=== PATIENT | female | born 1960 | race Caucasian/White ===

== ENCOUNTER → 2017-03-21 | Outpatient (CLI) | payer BC ==
[~2017-03-21] MED LIST: METF1TAB53 PO; ONDA4TAB7 SL
== END | disposition home or self-care (01) ==
LOC: C.LABSPEC 17:29
PROVIDERS: ATTEND Physician Assistant
DX: L29.8 Other pruritus (principal)

== ENCOUNTER 2024-03-15 13:33 | Observation (INO) ==
--- NOTE | 2024-03-15 13:58 | Emergency Department Note ---
Impression & Plan Acute cholecystitis, Epigastric abdominal pain, Nausea ED Provider Note NAME: GALI RIVERA AGE: 63 SEX: F : 1960 ARRIVES VIA: Walk-In INFORMANT: [Patient] ED PROVIDER(S): [Quinton Cole MD] CHIEF COMPLAINT: Abdominal pain HISTORY OF PRESENT ILLNESS: The patient is a 63-year-old female who states that she currently has epigastric pain into her back. The patient believes she has had pain now for around 4 hours. She had some breakfast cereal a few hours before the pain began. She does complain of some nausea, no vomiting. The patient states that she had pain in the right upper quadrant into the back twice this past week, it did resolve spontaneously. Both times, the right upper quadrant pain came on after eating some heavy/fatty food. The patient has not had shortness of breath or fever. She feels somewhat bloated. No urinary complaints, no diarrhea. PMHx/PSHx/Social Hx: See Below PHYSICAL EXAM: GENERAL: Patient is in mild distress from pain. HEENT: No acute trauma, normocephalic atraumatic, mucous membranes moist, no nasal congestion. NECK: No stridor, no adenopathy, no meningismus, trachea is midline. LUNGS: Clear to auscultation bilaterally, no wheeze, no rhonchi, breath sounds equal. HEART: Subtle systolic murmur, regular rate and rhythm. ABDOMEN: Soft, tender in the right upper quadrant, no distention. EXTREMITIES: No cyanosis, full range of motion of all the joints without pain or difficulty. NEUROLOGIC: Oriented x 3, no acute motor or sensory deficits, no focal weakness. SKIN: No jaundice, no diaphoresis. DIFFERENTIAL DIAGNOSIS: Pancreatitis, biliary colic, acute cholecystitis, UTI, renal colic, AAA, among others. EMERGENCY DEPARTMENT PROCEDURES: MEDICAL DECISION MAKING: There is no leukocytosis or concerning anemia. There is a normal platelet count. No renal failure or significant electrolyte abnormality. No concerning liver enzyme elevation. No evidence for pancreatitis. ECG shows a sinus rhythm, no ischemia. Cardiac enzyme testing x 1 is not consistent with acute cardiac injury. Urinalysis does not show evidence for infection, some contamination was seen. Chest x-ray does not show pneumonia or free air. Gallbladder ultrasound does show evidence for early acute cholecystitis, no ductal dilatation. On exam, patient was not febrile or toxic but she was tender in the right upper quadrant. Patient received IV saline 1 L, she was given IV Zosyn as antibiotic coverage. She was given IV Zofran, IV Toradol and IV Tylenol. She received IV morphine for additional pain control. The patient does feel improved since the medications have been administered. I did speak with on-call surgery. The patient will be hospitalized for surgical intervention. I spoke with the patient about her findings, I spoke with case management. I do believe the findings of acute cholecystitis explain her presentation. Prior/Outside records/notes reviewed: None ECG per my interpretation: Indication was abdominal pain. The ECG shows a normal sinus rhythm with a rate of 77. There is some poor R wave progression. There is no acute ST elevation. No PVCs. The QTc is 432. Continuous Cardiac Monitoring per my interpretation: An order was placed for continuous cardiac monitoring. The monitor shows a rate of 90 with normal sinus rhythm. Imaging/x-ray results per my interpretation: Chest x-ray does not show free air, pneumonia or pneumothorax. Chronic Medical/Social conditions affecting care: None Care/Management discussed with: Surgery-Dr. Morales. Level of care consideration(s): After review of the information above and other included data: --I believe the patient requires escalation of care to admission DISPOSITION: Admission Past Med/Surg History Problem List Nausea (Acute) Epigastric abdominal pain (Acute) Acute cholecystitis (Acute) Sarcoidosis Immune disorder High cholesterol Diabetes Arthritis Left ureteral calculus (Acute) Medical History Hypothyroid Kidney stones Surgical History (Updated 01/21/19 @ 08:25 by Sherley Méndez) H/O bilateral breast reduction surgery History of tubal ligation (~1991) Family History (Updated 01/21/19 @ 08:41 by Sherley Méndez) Other Diabetes Lupus Social History Smoking Status: Never smoker Hx Alcohol Use: Yes Preferred Language: Kazakh current occupation: medical billing and coding specialist Feels Safe at Home: Yes Allergies Allergies Allergy/AdvReac Type Severity Reaction Status Date / Time No Known Allergies Allergy Verified 03/15/24 15:31 Home Meds Home Medications Medication Instructions Recorded Confirmed atorvastatin 40 mg tablet 40 mg PO DAILY 01/21/19 01/21/19 lisinopril 2.5 mg tablet 2.5 mg PO DAILY 01/21/19 03/15/24 empagliflozin 10 mg tablet 10 mg PO DAILY 03/15/24 03/15/24 (Jardiance) levothyroxine 75 mcg tablet 75 mcg PO QAM 03/15/24 03/15/24 semaglutide 1 mg/dose (4 mg/3 mL) 1 mg subcut WK 03/15/24 03/15/24 subcutaneous pen injector (Ozempic) Results & Data (ED) Vital Signs Vital Signs - 24 hr 03/15/24 13:43 03/15/24 13:53 03/15/24 14:15 Temperature 36.6 C Temperature Source Temporal Artery Scan Pulse Rate 101 H 90 Pulse Rhythm Regular Respiratory Rate 20 Pulse Oximetry 95 Oxygen Delivery Method Room Air Sepsis Recent Fever Within 48 Hours No Sepsis New/Unexplained Change in Mental Status No Sepsis Action Taken by Nursing No Action Required Home Medications Current Medication List: was personally reviewed by me Laboratory Data Attestation: I reviewed the patient's lab results. 03/15/24 14:00 03/15/24 13:53 Lab Results 03/15/24 03/15/24 Range/Units 13:53 14:00 WBC 10.27 (4.8-10.8) K/ul RBC 5.22 (4.20-5.40) M/uL Hgb 15.0 (12.0-16.0) g/dl Hct 45.4 (37.0-47.0) % MCV 87.0 (80.0-100.0) fL MCH 28.7 (25.0-34.0) pg MCHC 33.0 (32.0-36.0) g/dL RDW Std Deviation 40.4 (36.4-46.3) fL RDW Coeff of [place] 12.8 (11.5-14.5) % Plt Count 305 (130-400) K/uL MPV 9.7 (9.4-12.4) fL Immature Gran % (Auto) 0.4 % Neut % (Auto) 64.5 % Lymph % (Auto) 22.4 % Atkinson % (Auto) 10.4 % Eos % (Auto) 2.0 % Baso % (Auto) 0.3 % Neut # (Auto) 6.62 H (1.40-6.50) K/uL Lymph # (Auto) 2.30 (1.20-3.40) K/uL Atkinson # (Auto) 1.07 H (0.11-0.59) K/uL Eos # (Auto) 0.21 (0.00-0.50) K/uL Baso # (Auto) 0.03 (0.00-0.20) K/uL Immature Gran # (Auto) 0.04 (0.01-0.20) K/uL Sodium 139 (136-145) mmol/L Potassium 3.9 (3.5-5.1) mmol/L Chloride 102 (98-107) mmol/L Carbon Dioxide 29 (21-32) mmol/L Anion Gap 8 (3-11) BUN 19 (6-23) mg/dl Creatinine 0.73 (0.6-1.2) mg/dl Est Cr Clr Drug Dosing 63.9 ml/min eGFR 92.93 BUN/Creatinine Ratio 26.0 H (10-20) Glucose 98 (70-99(Fasting)) mg/dl Calcium 9.9 (8.6-10.3) mg/dl Total Bilirubin 0.8 (0.2-1.0) mg/dl AST 14 (13-39) U/L ALT 18 (7-52) U/L Alkaline Phosphatase 127 H (34-104) U/L Troponin I High Sens 2.8 (0-14) pg/ml Total Protein 7.7 (6.0-8.3) gm/dl Albumin 4.9 (3.4-5.0) gm/dl Globulin 2.8 (2.5-4.0) gm/dl Albumin/Globulin Ratio 1.8 (0.9-2) Lipase 42 (11-82) U/L Urine Color Yellow Urine Appearance Clear (Clear) Urine pH 5.5 (4.5-7.5) Ur Specific [place] 1.041 H (1.000-1.030) Urine Protein Negative (Negative) Urine Glucose (UA) 3+ H (Negative) Urine Ketones Negative (Negative) Urine Blood 1+ H (Negative) Urine Nitrite Negative (Negative) Urine Bilirubin Negative (Negative) Urine Urobilinogen Negative (Negative) Ur Leukocyte Esterase Negative (Negative) Urine WBC (Auto) 6-10 H (0-5) /hpf Urine RBC (Auto) 0-2 (0-2) /hpf U Hyaline Cast (Auto) 0-2 (0-2) /lpf U Epithel Cells (Auto) 6-10 H (0-2) /hpf Urine Bacteria (Auto) None Seen (None Seen) Administered Medications Discontinued Medications Sodium Chloride (Nss) 1,000 mls @ 999 mls/hr IV .Q1H1M STA Stop: 03/15/24 14:52 Last Infusion: 03/15/24 14:53 Dose: Infused Documented By: Admin: 03/15/24 14:02 Dose: 999 mls/hr Documented By: JACQUELYNK Acetaminophen (Ofirmev) 1,000 mg in 100 mls @ 400 mls/hr IV NOW STA Stop: 03/15/24 14:06 Last Infusion: 03/15/24 14:24 Dose: Infused Documented By: Admin: 03/15/24 14:01 Dose: 400 mls/hr Documented By: JACQUELYNK Ketorolac Tromethamine (Ketorolac Tromethamine 15 Mg/Ml Vial) 10 mg IV NOW STA Stop: 03/15/24 13:53 Last Admin: 03/15/24 14:01 Dose: 10 mg Documented By: JACQUELYNK Ondansetron HCl (Ondansetron Inj 2 Mg/Ml 2 Ml Vial) 4 mg IV NOW STA Stop: 03/15/24 13:53 Last Admin: 03/15/24 14:01 Dose: 4 mg Documented By: JACQUELYNK Imaging Data Radiologist's Impression: Chest X-Ray 03/15/24 13:53 EXAM: Radiograph of the Chest 1 View INDICATION: Abdominal pain. TECHNIQUE: Frontal view of the chest. COMPARISON: No relevant prior studies available. FINDINGS: Lungs and pleural spaces: No consolidation or pulmonary edema. No pleural effusion or pneumothorax. Heart: Shape and configuration within normal limits allowing for technique. Mediastinum: Normal contour. Bones/joints: No fracture, erosion or dislocation. Soft tissues: No abnormality noted. No radiopaque foreign body noted. Upper abdomen: No free air subjacent to the diaphragms. IMPRESSION: No acute cardiopulmonary disease. ACT 112: Negative or not required by law. Electronically signed by Polina Dillard 03-15-2024 2:49 PM Gallbladder Ultrasound 03/15/24 13:53 EXAM: US Abdomen Limited Right Upper Quadrant INDICATION: TECHNIQUE: Real-time ultrasound of the right upper quadrant with image documentation. COMPARISON: No relevant prior studies available. FINDINGS: Liver: Smooth cortical contour. No mass. No intrahepatic bile duct dilation. Gallbladder: Multiple stones in the gallbladder. The wall is thickened 4 mm and mildly edematous. No pericholecystic fluid. The technologist indicates a positive sonographic Zhou sign. Common bile duct: No significant abnormality noted. No stones. No dilation. Pancreas: Homogeneously echogenic. No fluid. No mass or ductal dilatation. Right kidney: 10.8 cm long. Normal cortical thickness and echotexture. Mild hydronephrosis noted. No mass or stone noted. IMPRESSION: 1. Cholelithiasis with acute cholecystitis. 2. Mild right hydronephrosis. 3. Nonspecific pancreatic echogenicity. Consider pancreatitis and fatty atrophy. ACT 112: Negative or not required by law. Electronically signed by Polina Dillard 03-15-2024 3:15 PM Discharge Plan Visit Data Chief Complaint: Abdominal Pain Stated Complaint: CENTRAL ABD PAIN/TRAVELS TO BACK, NAUSEA ED Provider: Quinton Cole Discharge Problem: Acute cholecystitis, Epigastric abdominal pain, Nausea Patient Disposition: Admitted As Inpatient Condition: Fair Forms Stand Alone Forms: [employer] Prescriptions Prescriptions: No Action atorvastatin 40 mg tablet 40 mg PO DAILY lisinopril 2.5 mg tablet 2.5 mg PO DAILY levothyroxine 75 mcg tablet 75 mcg PO QAM Jardiance 10 mg tablet 10 mg PO DAILY Rx Instructions: stop the 25th Ozempic 1 mg/dose (4 mg/3 mL) pen injector 1 mg SUBCUT WK Referrals Referrals: Sterling Wasserman [Primary Care Provider] -
[2024-03-15] MEDS: ONDANSETRON INJ 2 MG/ML 2 ML VIAL IV STA (14:01)
[2024-03-15] MEDS: KETOROLAC TROMETHAMINE 15 MG/ML VIAL IV STA (14:01)
[2024-03-15] MEDS: ACETAMINOPHEN 1,000 MG/100 ML VIAL IV STA (14:01)
[2024-03-15] MEDS: SODIUM CHLORIDE 0.9% 1,000 ML IV STA (14:02)
[2024-03-15 14:15] LABS: Basophils # (auto) 0.03 K/uL (0.00-0.20); Basophils % (auto) 0.3 %; Eosinophils # (auto) 0.21 K/uL (0.00-0.50); Hematocrit (blood only) 45.4 % (37.0-47.0); Immature Granulocytes # (auto) 0.04 K/uL (0.01-0.20); Immature Granulocytes % (auto) 0.4 %; Lymphocytes % (auto) 22.4 %; Mean Corpuscular Hemoglobin 28.7 pg (25.0-34.0); Mean Platelet Volume 9.7 fL (9.4-12.4); Monocytes # (auto) 1.07 K/uL (0.11-0.59); Monocytes % (auto) 10.4 %; Neutrophils # (auto) 6.62 K/uL (1.40-6.50); Neutrophils % (auto) 64.5 %; Platelet Count 305 K/uL (130-400); RDW Coefficient of Variation 12.8 % (11.5-14.5); RDW Standard Deviation 40.4 fL (36.4-46.3); Red Blood Count 5.22 M/uL (4.20-5.40); White Blood Count 10.27 K/ul (4.8-10.8)
[2024-03-15 14:32] LABS: Albumin Globulin Ratio 1.8 (0.9-2); Albumin Level 4.9 gm/dl (3.4-5.0); Bilirubin,Total 0.8 mg/dl (0.2-1.0); Calcium 9.9 mg/dl (8.6-10.3); Creatinine Clr Calc Pharmacy 63.9 ml/min; Globulin 2.8 gm/dl (2.5-4.0); Potassium 3.9 mmol/L (3.5-5.1); Total Protein 7.7 gm/dl (6.0-8.3)
[2024-03-15 14:32] LABS: Appearance Urine Clear (Clear); Bacteria Urine Automated None Seen (None Seen); Bilirubin Urine Negative (Negative); Blood Urine 1+ (Negative); Cast Urine Automated 0-2 /lpf (0-2); Color Urine Yellow; Glucose Urine UA 3+ (Negative); Ketones Urine Negative (Negative); Leukocyte Esterase Urine Negative (Negative); Nitrite Urine Negative (Negative); Protein Urine Negative (Negative); RBC Urine Automated 0-2 /hpf (0-2); Specific Gravity Urine 1.041 (1.000-1.030); Urobilinogen Urine Negative (Negative); pH Urine 5.5 (4.5-7.5)
[2024-03-15 14:39] LABS: Troponin I High Sensitivity 2.8 pg/ml (0-14)
--- NOTE | 2024-03-15 14:49 | XRay Report ---
EXAM: Radiograph of the Chest 1 View INDICATION: Abdominal pain. TECHNIQUE: Frontal view of the chest. COMPARISON: No relevant prior studies available. FINDINGS: Lungs and pleural spaces: No consolidation or pulmonary edema. No pleural effusion or pneumothorax. Heart: Shape and configuration within normal limits allowing for technique. Mediastinum: Normal contour. Bones/joints: No fracture, erosion or dislocation. Soft tissues: No abnormality noted. No radiopaque foreign body noted. Upper abdomen: No free air subjacent to the diaphragms. IMPRESSION: No acute cardiopulmonary disease. ACT 112: Negative or not required by law. Electronically signed by Polina Dillard 03-15-2024 2:49 PM
--- NOTE | 2024-03-15 15:15 | Ultrasound Report ---
EXAM: US Abdomen Limited Right Upper Quadrant INDICATION: TECHNIQUE: Real-time ultrasound of the right upper quadrant with image documentation. COMPARISON: No relevant prior studies available. FINDINGS: Liver: Smooth cortical contour. No mass. No intrahepatic bile duct dilation. Gallbladder: Multiple stones in the gallbladder. The wall is thickened 4 mm and mildly edematous. No pericholecystic fluid. The technologist indicates a positive sonographic Zhou sign. Common bile duct: No significant abnormality noted. No stones. No dilation. Pancreas: Homogeneously echogenic. No fluid. No mass or ductal dilatation. Right kidney: 10.8 cm long. Normal cortical thickness and echotexture. Mild hydronephrosis noted. No mass or stone noted. IMPRESSION: 1. Cholelithiasis with acute cholecystitis. 2. Mild right hydronephrosis. 3. Nonspecific pancreatic echogenicity. Consider pancreatitis and fatty atrophy. ACT 112: Negative or not required by law. Electronically signed by Polina Dillard 03-15-2024 3:15 PM
[2024-03-15] MEDS ORDERED: MoRPHine SULFATE 2 MG/ML CARP IV PRN (15:45)
[2024-03-15] MEDS: PIPERACILLIN/TAZOBACTAM 4.5 GM/100 ML BAG IV ONE (15:56)
[2024-03-15] MEDS: MoRPHine SULFATE 2 MG/ML CARP IV STA (15:57)
--- NOTE | 2024-03-15 17:23 | History & Physical Report ---
Date of Service March 15, 2024 Assessment & Plan (1) Acute cholecystitis: Plan: Discussed her diagnosis. We discussed options and risks which include bleeding, infection, bile duct injury or bile duct leak, injury to other organs, DVT, PE, [place], CVA etc. Following our discussion I answered all of her questions. We will proceed today with laparoscopic cholecystectomy. She agrees with the plan. (2) Diabetes: (3) Sarcoidosis: History of Present Illness Primary Care Provider: Sterling Lara is a pleasant 63-year-old female whose had about a 1 week history of severe upper abdominal pain with nausea. It temporarily went away for a day or 2 and then came back today after eating. Workup in the emergency room reveals acute cholecystitis. Allergies Allergy/AdvReac Type Severity Reaction Status Date / Time No Known Allergies Allergy Verified 03/15/24 15:31 Home Medications Medication Instructions Recorded Confirmed Type atorvastatin 40 mg tablet 40 mg PO 3XWK 01/21/19 03/15/24 History lisinopril 2.5 mg tablet 2.5 mg PO QAM 01/21/19 03/15/24 History empagliflozin 10 mg tablet 10 mg PO QAM 03/15/24 03/15/24 History (Jardiance) levothyroxine 75 mcg tablet 75 mcg PO DAILYBB 03/15/24 03/15/24 History semaglutide 1 mg/dose (4 mg/3 mL) 1 mg subcut WK 03/15/24 03/15/24 History subcutaneous pen injector (Ozempic) Past Med/Surg History Problem List (Updated 03/15/24 @ 17:23 by Reece Morales DO) Nausea (Acute) Epigastric abdominal pain (Acute) Acute cholecystitis (Acute ~03/15/24) Sarcoidosis Immune disorder High cholesterol Diabetes Arthritis Left ureteral calculus (Acute) Medical History Hypothyroid Kidney stones Surgical History (Updated 01/21/19 @ 08:25 by Sherley Méndez) H/O bilateral breast reduction surgery History of tubal ligation (~1991) Family History (Updated 01/21/19 @ 08:41 by Sherley Méndez) Other Diabetes Lupus Social History Smoking Status: Never smoker Hx Alcohol Use: Yes Preferred Language: Khmer current occupation: medical laboratory manager Feels Safe at Home: Yes Review of Systems All systems reviewed & are unremarkable except as noted in HPI & below Physical Exam Constitutional: WD/WN, vitals as above no acute distress and not ill appearing Eyes: PERRL, conjunctivae normal, anicteric sclerae EOM intact bilaterally ENMT: external ear and nose normal, oropharynx normal Ears: no hearing impairment Neck: trachea midline, no thyromegaly Respiratory: normal respiratory effort; no respiratory distress and does not use accessory muscles Cardiovascular: Rate/Rhythm: regular rate and regular rhythm Gastrointestinal (Abdomen): Soft. Positive right upper quadrant tenderness. No other palpable abnormalities Skin: no rashes, warm and dry Psychiatric: Orientation: alert, oriented x 3 and cooperative Results & Data Vital Signs (Past 12 Hours) Vital Signs Temp Pulse Pulse Resp BP Pulse Ox O2 Del Method 03/15/24 15:34 80 17 134/77 97 Room Air 03/15/24 14:15 90 03/15/24 13:53 101 H 20 95 Room Air 03/15/24 13:43 36.6 C
--- NOTE | 2024-03-15 17:47 | Anesthesiology Consultation ---
Date of Service March 15, 2024 Assessment & Plan Chart Review Chart Review: Acceptable Risk for Surgery Consults Requested none History Surgery Operation Date: 03/15/24 17:30 Proposed Procedures p Laparoscopic Cholecystectomy - Reece Morales DO Height/Weight Height: 4 ft 11 in Weight: 61.8 kg Allergies Allergy/AdvReac Type Severity Reaction Status Date / Time No Known Allergies Allergy Verified 03/15/24 15:31 Medications Home Medications Medication Instructions Recorded Confirmed Last Taken atorvastatin 40 mg tablet 40 mg PO 3XWK 01/21/19 03/15/24 03/14/24 lisinopril 2.5 mg tablet 2.5 mg PO QAM 01/21/19 03/15/24 03/14/24 empagliflozin 10 mg tablet 10 mg PO QAM 03/15/24 03/15/24 03/14/24 (Jardiance) levothyroxine 75 mcg tablet 75 mcg PO DAILYBB 03/15/24 03/15/24 03/14/24 semaglutide 1 mg/dose (4 mg/3 mL) 1 mg subcut WK 03/15/24 03/15/24 03/07/24 subcutaneous pen injector (Ozempic) OVERDUE NPO Date Last Intake of Fluids: 03/15/24 Time Last Intake of Fluids: 13:00 Date Last Intake of Solids: 03/15/24 Time Last Intake of Solids: 11:00 Past Medical History Medical History Hypothyroid Kidney stones Past Family History Family History (Updated 01/21/19 @ 08:41 by Sherley Méndez) Other Diabetes Lupus Past Surgical History Surgical History (Updated 01/21/19 @ 08:25 by Sherley Méndez) H/O bilateral breast reduction surgery History of tubal ligation (~1991) Social History Smoking Status: Never smoker Hx Alcohol Use: Yes Physical Exam Vital Signs Last Vital Signs Temp 36.6 C 03/15/24 13:43 Pulse 75 03/15/24 17:00 Resp 17 03/15/24 17:00 BP 106/67 03/15/24 17:00 Pulse Ox 94 03/15/24 17:00 O2 Del Method Room Air 03/15/24 17:00 Testing Laboratory Results 03/15/24 14:00 03/15/24 13:53 Urine Color Yellow 03/15/24 14:00 Urine Appearance Clear (Clear) 03/15/24 14:00 Urine pH 5.5 (4.5-7.5) 03/15/24 14:00 Ur Specific [place] 1.041 (1.000-1.030) H 03/15/24 14:00 Urine Protein Negative (Negative) 03/15/24 14:00 Urine Glucose (UA) 3+ (Negative) H 03/15/24 14:00 Urine Ketones Negative (Negative) 03/15/24 14:00 Urine Nitrite Negative (Negative) 03/15/24 14:00 Ur Leukocyte Esterase Negative (Negative) 03/15/24 14:00 Urine WBC (Auto) 6-10 /hpf (0-5) H 03/15/24 14:00 Urine RBC (Auto) 0-2 /hpf (0-2) 03/15/24 14:00 U Hyaline Cast (Auto) 0-2 /lpf (0-2) 03/15/24 14:00 U Epithel Cells (Auto) 6-10 /hpf (0-2) H 03/15/24 14:00 Urine Bacteria (Auto) None Seen (None Seen) 03/15/24 14:00
[2024-03-15] MEDS ORDERED: ATROPINE SULFATE 0.1 MG/ML 10ML SYR IV PRN (17:49)
[2024-03-15] MEDS ORDERED: HYDROmorphone INJ 2 MG/ML SYR/VIAL IV PRN (17:49)
[2024-03-15] MEDS ORDERED: ePHEDrine sulfate 50 MG/ML AMP IV PRN (17:49)
[2024-03-15] MEDS ORDERED: fentaNYL citrate PF 100 MCG/2 ML VIAL IV PRN (17:49)
[2024-03-15] MEDS ORDERED: MIDAZOLAM HCL 1 MG/ML 2ML VIAL ONE (17:59)
[2024-03-15] MEDS ORDERED: fentaNYL citrate PF 100 MCG/2 ML VIAL ONE (17:59)
[2024-03-15] MEDS ORDERED: ROCURONIUM BROMIDE 10 MG/ML 5 ML VIAL IV ONE (18:02)
[2024-03-15] MEDS: BUPIVACAINE/EPINEPHRINE 0.5% MPF 1:200,000 30 ML VIAL ONE (18:38)
[2024-03-15] MEDS ORDERED: ONDANSETRON INJ 2 MG/ML 2 ML VIAL ONE (18:39)
[2024-03-15] MEDS ORDERED: PROPOFOL IV EMULSION 10 MG/ML 20 ML VIAL IV ONE ×2 (18:39→18:43)
[2024-03-15] MEDS ORDERED: DEXAMETHASONE SOD INJ 4 MG/ML VIAL ONE (18:39)
[2024-03-15] MEDS ORDERED: SUGAMMADEX SODIUM 200 MG/2 ML VIAL IV ONE (18:40)
--- NOTE | 2024-03-15 19:11 | Operative Report ---
PG Post Operative Report Pre & Post Diagnosis Operation Date: 03/15/24 17:30 Pre-Op Diagnosis: Acute cholecystitis Post-Op Diagnosis: Acute cholecystitis I identified the patient and participated in the time-out.: Yes Procedure Operation Date: 03/15/24 17:30 Actual Procedures p Laparoscopic Cholecystectomy - Reece Morales DO Surgeon Reece Morales DO [employer] Super[employer] OR staff Estimated Blood Loss 25 Findings Consistent with Post-Op Diagnosis Specimens gallbladder Description of Procedure After informed consent was obtained the patient was taken to the operating room and placed in the supine position. After successful intubation the abdomen was sterilely prepped and draped in usual fashion. A periumbilical incision was made with an 11 blade scalpel and carried down through the soft tissue using electrocautery. The anterior rectus fascia was opened using electrocautery and 2 #0 Vicryl stay sutures were placed. The peritoneum was elevated with hemostats and incised under direct vision using Metzenbaum scissors. A finger sweep was performed and a 12 mm Guy trocar was placed. The abdomen was insufflated to 18 mmHg. The laparoscope was inserted and the abdomen was examined in 360. There was a small hiatal hernia. The gallbladder was also acutely inflamed. Other than those 2 findings no other gross abnormalities were identified. A subxiphoid 5 mm port and 2 right upper quadrant 5 mm ports were placed under direct vision. The patient was placed in a reverse Trendelenburg position and slightly airplaned to the left. The gallbladder was grasped and elevated superiorly and laterally. A [place] dissector was used to take down adhesions around the neck of the gallbladder. The cystic duct was identified and skeletonized. It was clipped twice proximally and once distally and transected using a laparoscopic scissor. In similar fashion the cystic artery was identified and skeletonized clipped and divided. The gallbladder was removed from the gallbladder fossa with electrocautery. It was placed into an Endo Catch bag. Thorough irrigation was performed. At the end of the procedure there was adequate hemostasis and no evidence of any bile leaks. A final look around the abdomen showed no other abnormalities. The gallbladder and trochars were all removed and the abdomen was desufflated. The fascia of the camera port was closed using 0 Vicryl in a [id number] fashion. All the wounds were irrigated and closed using 4-0 Monocryl. Marcaine was injected around them for postoperative analgesia and skin glue used as a dressing. The patient was awaken extubated and transferred to recovery in stable condition. I attest to the content of the Intraoperative Record and any orders documented therein. Any exceptions are noted below.
--- NOTE | 2024-03-15 19:28 | Anesthesiology Progress Note ---
Date of Service March 15, 2024 Anesthesia Post Procedure Vital Signs Vital Signs: Temp Pulse Pulse Resp BP Pulse Ox O2 Del Method 03/15/24 17:00 75 17 106/67 94 Room Air 03/15/24 15:34 80 17 134/77 97 Room Air 03/15/24 14:15 90 03/15/24 13:53 101 H 20 95 Room Air 03/15/24 13:43 36.6 C Pain Intensity Right Upper Abdomen: Pain Intensity: 6 Transfer of Care Handoff Completed per policy Notes Mental Status: alert / awake / arousable Patient Amnestic to Procedure: Yes Nausea / Vomiting: adequately controlled Pain: adequately controlled Airway Patency, RR, SpO2: stable & adequate BP & HR: stable & adequate Hydration State: stable & adequate Anesthetic Complications: no major complications apparent and Pt Satisfied with anesthetic care
[2024-03-15] MEDS: ONDANSETRON INJ 2 MG/ML 2 ML VIAL IV PRN (19:30)
[2024-03-15] MEDS ORDERED: GLUCAGON FOR INJ 1 MG VIAL SQ PRN (19:37)
[2024-03-15] MEDS ORDERED: GLUCOSE 40% GEL 15 GM TUBE PO PRN (19:37)
[2024-03-15] MEDS ORDERED: GLUCOSE 10 TAB/TUBE PO PRN (19:37)
[2024-03-15] MEDS ORDERED: DEXTROSE 50% 50 ML SYRINGE IV PRN (19:37)
[2024-03-15] MEDS ORDERED: CARBOHYDRATES FOR HYPOGLYCEMIA PO PRN (19:37)
--- NOTE | 2024-03-15 19:39 | Hospitalist Consultation ---
Date of Consultation March 15, 2024 Assessment & Plan (1) Acute cholecystitis: Acute cholecystitis s/p lap cholecystectomy Liver ultrasound cholelithiasis with acute cholecystitis. No obstruction is seen. LFTs are normal Management per surgical team Patient has been on perioperative Zosyn. She is not septic at time of assessment. She does not have leukocytosis (2) Sarcoidosis: .No acute change in management (3) High cholesterol: May resume atorvastatin 03/16 (4) Diabetes: Patient is on Jardiance and Ozempic [employer] Takes Ozempic on Fridays; however she did not take this in the past week and reports she has not had it in around 8 days No A1c available BSG 89 preop, 117 postop Will add conservative SSI with correction factor only, no carb ratio. If outside of goal parameters of [id number], may place pharmacy glycemic consult. No need for insulin at time of assessment. Type II DM diet once able to be advanced per surgical team (5) Hypothyroid: Continue Synthroid Plan Pharmacal prophylaxis deferred immediately postop. Can add Lovenox for DVT prophylaxis 03/16 Full code MSO History of Present Illness History of Present Illness Marco is a 63-year-old female with past medical history of type II DM, sarcoidosis, hypothyroidism, and hyperlipidemia who presented to the ER with epigastric pain rating to the back which occurred twice earlier in the week, but which recurred day of admission and was persistent for 4 hours after eating breakfast. On ER evaluation she was found to have acute cholecystitis. Patient is seen in E101 on recovery following surgery. We have been consulted for medical management of diabetes. Patient is somewhat groggy and somnolent postanesthesia. She reports her pain is tolerable and 4/10. She denies fever chills or sweats. No chest pain or chest pressure. 4/10 pain slightly achy in her mid abdomen, no rebound/guarding and this is not significantly worse on palpation. She denies history of heart disease, strokes, and CKD. She denies chest pain preceding admission and reports she can go over normal activities without limiting chest pain/chest pressure She is nauseous and would like an antiemetic She denies medication allergies For diabetes she takes Jardiance and Ozempic. She normally takes her Ozempic on Fridays however she did not take it this past week. Her PCP is Sterling Wasserman with [facility], no records are available at time of admission She denies tobacco and alcohol use Full code Offered to call her family, patient notes that family is already been called by Dr. Morales and does not wish for any other updates to be given at time of assessment Allergies Allergy/AdvReac Type Severity Reaction Status Date / Time No Known Allergies Allergy Verified 03/15/24 15:31 Home Medications Medication Instructions Recorded Confirmed Type atorvastatin 40 mg tablet 40 mg PO 3XWK 01/21/19 03/15/24 History lisinopril 2.5 mg tablet 2.5 mg PO QAM 01/21/19 03/15/24 History empagliflozin 10 mg tablet 10 mg PO QAM 03/15/24 03/15/24 History (Jardiance) levothyroxine 75 mcg tablet 75 mcg PO DAILYBB 03/15/24 03/15/24 History semaglutide 1 mg/dose (4 mg/3 mL) 1 mg subcut WK 03/15/24 03/15/24 History subcutaneous pen injector (Ozempic) Patient History Medical History Hypothyroid Kidney stones Surgical History (Updated 01/21/19 @ 08:25 by Sherley Méndez) H/O bilateral breast reduction surgery History of tubal ligation (~1991) Family History (Updated 01/21/19 @ 08:41 by Sherley Méndez) Other Diabetes Lupus Social History Smoking Status: Never smoker Hx Alcohol Use: Yes Preferred Language: Austrian current occupation: clinical medical assistant Feels Safe at Home: Yes Physical Exam Physical Exam: General: A&Ox3. NAD. Cooperative. Somnolent and somewhat groggy following anesthesia but answers questions appropriate HEENT: Atraumatic, normocephalic. Vision and hearing grossly intact Pulm: CTAB A&P. -wheezes, -rales, -rhonchi. Symmetrical chest rise. No increased work of breathing. No respiratory distress. Cardiac: RRR, -mrg. Radial pulses intact and symmetrical. Abdominal: Lap incisions intact without dehiscence/bleeding/oozing. Abdomen is diffusely mildly tender to palpation but without rebound/guarding/rigidity Results & Data Results & Data Vital Signs (Past 12 Hours) Vital Signs Temp Pulse Pulse Resp BP Pulse Ox O2 Del Method 03/15/24 17:00 75 17 106/67 94 Room Air 03/15/24 15:34 80 17 134/77 97 Room Air 03/15/24 14:15 90 03/15/24 13:53 101 H 20 95 Room Air 03/15/24 13:43 36.6 C PG Care Time/CCT Total # of Minutes Spent Total Time Spent with Patient: Total time spent is greater than 50% in coordination of care (as documented) at patient's floor/unit and/or counseling patient: Coding Level of Care Code 26763 IN/OBS CONSULT LVL 4,60M Diagnoses Acute cholecystitis K81.0 Sarcoidosis D86.9 High cholesterol E78.00 Diabetes E11.9 Hypothyroid E03.9
[2024-03-15] MEDS: PROMETHAZINE HCL 6.25 MG in SODIUM CHLORIDE 0.9% 50 ML IV PRN (19:40)
[2024-03-15] MEDS: PROMETHAZINE HCL INJ 25 MG/ML 1 ML VIAL ONE (19:49)
[2024-03-15] MEDS: SODIUM CHLORIDE 0.9% 50 ML BAG ONE ×2 (19:49→20:33)
[2024-03-15] MEDS ORDERED: ONDANSETRON INJ 2 MG/ML 2 ML VIAL IV PRN (20:31)
[2024-03-15] MEDS ORDERED: MoRPHine SULFATE 4 MG/ML 1 ML CARP\\VIAL IV PRN (20:31)
[2024-03-15] MEDS: PROMETHAZINE 6.25 MG/50.25 ML BAG IV STA (20:33)
[2024-03-15] MEDS: SODIUM CHLORIDE 0.9% 1,000 ML IV SCH (20:40)
[2024-03-15] MEDS: INSULIN ASPART PER UNIT CHARGE SC SCH (20:42)
[2024-03-15] MEDS: PIPERACILLIN/TAZOBACTAM 4.5 GM/100 ML BAG IV SCH (21:53)
[2024-03-16] MEDS: ACETAMINOPHEN 1,000 MG/100 ML VIAL IV PRN (02:04)
--- NOTE | 2024-03-16 05:13 | Surgery Progress Note ---
Date of Service March 16, 2024 Assessment & Plan (1) Acute cholecystitis: Plan: Status post laparoscopic cholecystectomy on 03/15/2024 (postop day #1) Provide analgesics as needed Provide antiemetics as needed Patient is tolerating clear liquids so likely advance diet as tolerated this morning Continue antibiotics while in hospital Increase activity as able Check a.m. labs when available as above. doing well. pain controlled. ok for d/c. instructions given Admission and Anticipated Discharge Date Admission Date: March 15, 2024 Subjective Patient is resting comfortably in bed. She notes that since her surgery she has not had a bowel movement yet. She notes her pain is well-controlled. She denies any nausea or vomiting. She has tolerated clear liquid since surgery. Physical Exam Gastrointestinal (Abdomen): Abdomen is soft and nondistended. She has minimal pain and only some slight tenderness near her surgical incisions which is expected. Incisions are all clean, dry, and intact Results & Data Vital Signs (Past 12 Hours) Vital Signs Temp Pulse Resp BP Pulse Ox O2 Del Method O2 Flow Rate 03/16/24 04:13 36.7 C 87 16 110/80 97 Room Air 03/15/24 23:58 36.8 C 89 18 106/67 98 Room Air, Nasal Cannula 2 03/15/24 21:58 Nasal Cannula 2 03/15/24 21:58 36.6 C 80 18 133/80 98 Nasal Cannula 2 03/15/24 20:10 85 18 131/72 98 Nasal Cannula 2 03/15/24 19:55 36.3 C L 96 H 16 134/73 97 Nasal Cannula 2 03/15/24 19:45 110 H 18 152/89 H 95 Nasal Cannula 3 03/15/24 19:35 91 H 14 128/74 95 Oxymask 3 03/15/24 19:25 36 C L 100 H 16 141/78 H 94 Oxymask 6 PG Care Time/CCT Total # of Minutes Spent Total Time Spent with Patient: Total time spent is greater than 50% in coordination of care (as documented) at patient's floor/unit and/or counseling patient: Coding Level of Care Code 29156 Post Operative Follow-Up Diagnoses Acute cholecystitis K81.0
[2024-03-16] MEDS: LEVOTHYROXINE SODIUM 75 MCG TABLET PO SCH (05:44)
[2024-03-16 06:20] LABS: Basophils # (auto) 0.01 K/uL (0.00-0.20); Basophils % (auto) 0.1 %; Hematocrit (blood only) 39.1 % (37.0-47.0); Immature Granulocytes # (auto) 0.04 K/uL (0.01-0.20); Immature Granulocytes % (auto) 0.5 %; Lymphocytes # (auto) 0.63 K/uL (1.20-3.40); Lymphocytes % (auto) 7.4 %; Mean Corpuscular Hgb Conc 33.2 g/dL (32.0-36.0); Mean Corpuscular Volume 87.3 fL (80.0-100.0); Mean Platelet Volume 9.8 fL (9.4-12.4); Monocytes # (auto) 0.44 K/uL (0.11-0.59); Monocytes % (auto) 5.2 %; Neutrophils # (auto) 7.38 K/uL (1.40-6.50); Neutrophils % (auto) 86.8 %; Platelet Count 264 K/uL (130-400); RDW Coefficient of Variation 12.4 % (11.5-14.5); RDW Standard Deviation 39.8 fL (36.4-46.3); Red Blood Count 4.48 M/uL (4.20-5.40)
[2024-03-16 07:16] LABS: Albumin Globulin Ratio 1.4 (0.9-2); Albumin Level 3.7 gm/dl (3.4-5.0); BUN Creatinine Ratio 27.4 (10-20); Bilirubin,Total 0.7 mg/dl (0.2-1.0); Calcium 8.7 mg/dl (8.6-10.3); Creatinine Clr Calc Pharmacy 63.9 ml/min; Globulin 2.6 gm/dl (2.5-4.0); Potassium 4.5 mmol/L (3.5-5.1); Total Protein 6.3 gm/dl (6.0-8.3)
[2024-03-16 07:56] VITALS: BP 94/60; RESP 14; TEMP 97.7; O2SAT 94
[2024-03-16] MEDS: lisinopril 2.5 MG TAB PO SCH (09:01)
[2024-03-16 10:11] VITALS: PULSE 87
--- NOTE | 2024-03-16 13:08 | Electrocardiogram Report ---
Test Reason : Blood Pressure : */* mmHG Vent. Rate : 77 BPM Atrial Rate : 77 BPM P-R Int : 160 ms QRS Dur : 74 ms QT Int : 382 ms P-R-T Axes : 63 10 32 degrees QTcB Int : 432 ms Normal sinus rhythm Low voltage QRS Poor R wave progression, consider anterior MD vs. lead placement vs. LVH Abnormal ECG No previous ECGs available Confirmed by Javed Casas ([id number]) on 03/16/2024 1:07:51 PM Referred By: REFERRED SELF Confirmed By: Javed Casas
[2024-03-17] MEDS ORDERED: ATORVASTATIN 40 MG TAB PO SCH (09:00)
--- NOTE | 2024-03-25 09:20 | Discharge Summary ---
Date of Service March 16, 2024 Admission HPI Per Admitting Provider Marco is a pleasant 63-year-old female whose had about a 1 week history of severe upper abdominal pain with nausea. It temporarily went away for a day or 2 and then came back today after eating. Workup in the emergency room reveals acute cholecystitis. Principal Diagnosis acute cholecystitis Discharge Exam awake/alert, no distress Gastrointestinal (Abdomen) Inspection/Auscultation: + abdominal surgical incision (c/d/i ) Percussion/Palpation: + abdomen tender (expected post op discomfort yousuf incisionally ) and abdomen soft Discharge Data Allergies Allergy/AdvReac Type Severity Reaction Status Date / Time No Known Allergies Allergy Verified 03/15/24 15:31 Consultations 03/15/24 15:29 ED Decision to Admit Stat 03/15/24 19:05 Consult Hospitalist Stat Procedures Performed Operation Date: 03/15/24 17:30 Actual Procedures p Laparoscopic Cholecystectomy - Reece Morales DO Ordered Studies 03/15/24 13:53 US gallbladder Stat Hospital Course (1) Acute cholecystitis: This is a 63yF who presented to the [facility] ED on 03/15/24 with complaints of upper abdominal pain and nausea. Workup with a RUQ US revealed findings concerning for cholelithiasis and cholecystitis. She was kept NPO with IVF and taken to the OR with Dr. Morales for a laparoscopic cholecystectomy. The patient tolerated the procedure well, see op note for full details. She recovered in the PACU and was transferred to the med/surg unit in stable condition. Post operatively her pain was controlled with prn medications and diet advanced as tolerated. The hospitalists evaluated patient during her admission for assistance with medical management. On POD#1 the patient was deemed stable for discharge to home. She was instructed to follow up in the office within 2 weeks time. Total Time Total Time Spent Total Time Spent (In Minutes): 15 Discharge Plan Discharge Items Patient Disposition: Home - Self-Care Reason For Visit: [place] Discharge Diagnosis: Cholecystitis Condition on Discharge: Good Activity: As commented below Activity Comment: Walk daily Lifting: No more than 10 pounds Bathing: May shower/bathe in 3 days Driving/Machine Use: When cleared by your surgeon Non-emergency contact: Surgeon Call non-emergency contact if: you have any medication questions Follow-up/Referrals: Morales,Reece D., DO [Surgeon] - (Call office to arrange a 2 week follow-up appointment) Sterling Wasserman [Primary Care Provider] - Diet: Regular Addtl Attending Provider Instructions: Call office with questions Pending Studies at Discharge: No Stand-Alone Forms: [facility], Pain - Opioid Pain Management, Smoking Cessation Medications and DC Order Prescriptions: New oxycodone-acetaminophen 5-325 mg tablet 1 tab PO Q8H PRN (Reason: pain) Qty: 10 0RF Continued atorvastatin 40 mg tablet 40 mg PO 3XWK Rx Instructions: TAKE ON SUNDAY,SUNDAY,SUNDAY lisinopril 2.5 mg tablet 2.5 mg PO QAM levothyroxine 75 mcg tablet 75 mcg PO DAILYBB Jardiance 10 mg tablet 10 mg PO QAM Rx Instructions: stop the Ozempic 1 mg/dose (4 mg/3 mL) pen injector 1 mg SUBCUT WK Rx Instructions: FRIDAYS Discharge Orders: Discharge Order (Routine); Ordered 03/16/24 Ordered By: Reece Nuñez/Other Patient Handouts: Low-Fiber Diet, DVT Post Op Prevention Admission Data Admit Date/Time: 03/15/24 19:05 Attending Provider: Reece Morales Admit Provider: Reece Morales Primary Care Provider: Sterling Wasserman Other Providers: Reece Morales; Daniel Coto Other Interventions: Discharge Summary Assessment (RN) Last Done: 03/16/24 10:09 Coding Level of Care Code 46020 IN/OBS DISCH 30 MIN/LESS Diagnoses Acute cholecystitis K81.0
== END 2024-03-16 11:19 | disposition home or self-care (01) | DRG 419 ==
LOC: ED 13:33 → 3E 17:26 → INTOOBSV 19:05